=== PATIENT | male | born 1985 | race Caucasian/White ===

== ENCOUNTER 2016-10-11 00:57 | Emergency (ER) | payer OTHER ==
[~2016-10-11] VITALS: Ht 170.2 cm; Wt 83.9 kg
[2016-10-11] MEDS ORDERED: ATIVAN0.5 MG PO (02:08)
[2016-10-11 02:32] VITALS: BP 131/86
== END 2016-10-11 02:33 | disposition home or self-care (01) ==
LOC: ER 00:57
DX: F41.0 Panic disorder [episodic paroxysmal anxiety] (principal); F90.9 Attention-deficit hyperactivity disorder, unspecified type; F17.210 Nicotine dependence, cigarettes, uncomplicated; F10.99 Alcohol use, unspecified with unspecified alcohol-induced disorder